=== PATIENT | male | born 1945 | race Caucasian/White ===

== ENCOUNTER 2016-07-14 17:06 | Emergency (ER) | payer MEDICARE, OTHER ==
[2016-07-14] MEDS ORDERED: NS 0.9% 1000 ML* 1,000 ML IV ONE (17:38)
[2016-07-14] MEDS ORDERED: Ondansetron INJ* 2 MG/ML VIAL IV ONE (17:38)
[2016-07-14] MEDS ORDERED: Morphine INJ* 2 MG/ML 1 ML SYRINGE IV ONE (17:38)
[2016-07-14 18:03] LABS: Hematocrit 43 % (42-52); Hemoglobin 14.5 g/dl (14.0-18.0); Mean Corpuscular HGB Conc 34 g/dl (31-36); Mean Corpuscular Hemoglobin 33 pg (27-31); Mean Corpuscular Volume 97 fL (80-94); Mean Platelet Volume 8 um3 (7.4-10.4); Red Blood Count 4.42 10^6/ul (4.0-5.4); Red Cell Distribution Width 12 % (10.5-15); White Blood Count 7.9 10^3/ul (3.5-10.8)
[2016-07-14 18:28] LABS: Albumin 4.1 g/dL (3.2-5.2); BUN/Creatinine Ratio 15.8 (8-20); C Reactive Protein 8.76 mg/L (< 5.00); Calcium 9.3 mg/dL (8.6-10.3); EGFR African American 76.5 (>60); EGFR Non-African American 59.5 (>60); Globulin 2.8 g/dL (2-4); Total Bilirubin 0.6 mg/dL (0.2-1.0); Total Protein 6.9 g/dL (6.4-8.9)
[2016-07-14] MEDS ORDERED: Midazolam* 1 MG/ML 10 ML VIAL (10 MG) ONE (18:32)
[2016-07-14] MEDS ORDERED: fentaNYL* 50 MCG/ML 5 ML VIAL (250 MCG VIAL) ONE (18:33)
[2016-07-14] MEDS ORDERED: Naloxone* 0.4 MG/ML 10 ML VIAL ONE (18:34)
[2016-07-14] MEDS ORDERED: Flumazenil* 0.1 MG/ML 5 ML MDV ONE (18:39)
[2016-07-14 18:46] VITALS: BP 130/75
--- NOTE | 2016-07-14 19:11 | RAD ---
Indication: LEFT hip pain. Dislocation of prosthetic hip while squatting today. Hip replacements completed in [place]. Comparison: None. Technique: AP pelvis. Report: The prosthetic LEFT hip is dislocated superior and posterior relative to the prosthetic acetabulum. No periprosthetic fracture evident. Negative for suggestion of loosening of the cemented acetabular or femoral components. The prosthetic RIGHT hip appears normally located. Soft tissue swelling about the LEFT hip. IMPRESSION: Posteriorly dislocated prosthetic LEFT hip.
--- NOTE | 2016-07-14 19:22 | RAD ---
Indication: Post reduction LEFT prosthetic hip dislocation. Comparison: Prereduction exam of the same date. Technique: AP pelvis REPORT AND IMPRESSION: The partially visualized prosthetic LEFT hip is now normally located in the AP projection concentric with the prosthetic acetabular cup and symmetric with the contralateral hip prosthesis. No fracture evident within the [id number]. Complete assessment would require an orthogonal view.
--- NOTE | 2016-07-14 19:49 | ED ---
Marcy Hussein Matthew, scribed for Elliot Oh on 07/14/16 at 1947 . Progress - Progress Note Progress Note: The patient is a sign out from Dr. Baker. The patient is alert and oriented after the reduction by Dr. Baker and will be discharged home. The patient is in stable condition. - Results/Orders Results/Orders: Repeat Pelvis XRay REPORT AND IMPRESSION: The partially visualized prosthetic LEFT hip is now normally located in the AP projection concentric with the prosthetic acetabular cup and symmetric with the contralateral hip prosthesis. No fracture evident within the field-of- view. Complete assessment would require an orthogonal view. Pelvis Xray IMPRESSION: Posteriorly dislocated prosthetic LEFT hip. Course/Dx - Diagnoses Provider Diagnoses: Hip dislocation, left The documentation as recorded by the Marcy orr Matthew accurately reflects the service I personally performed and the decisions made by Adriano ma Emmanuel.
--- NOTE | 2016-07-15 07:48 | ED ---
Ye Hussein Rebecca, scribed for Kilo Baker MD on 07/14/16 at 1730 . Lower Extremity - HPI Summary HPI Summary: Pt is a 70 y/o M BIBA who presents to ED c/o L hip pain s/p dislocation. Reports that dislocation occurred at 1630 while squatting down to shredder picker his dog and associated pain has been constant since onset. Pain is currently severe , ranked 9/10 and characterized as sharp. Sx aggravated and alleviated by nothing. Denies any other sx including fever. PSHx bilateral hip replacement ( 1994). Current episode similar to prior episode of dislocation in February 2016. - History of Current Complaint Chief Complaint: EDHipPelvisInjury Stated Complaint: LEFT HIP PAIN, Time Seen by Provider: 07/14/16 17:24 Hx Obtained From: Patient Onset of Pain: Hours - 1 hour ago, Prior to Arrival Onset/Duration: Still Present Severity Initially: Severe Severity Currently: Severe Pain Intensity: 9 Pain Scale Used: 0-10 Numeric Timing: Constant Location: Is Discrete @ - L hip Character Of Pain: Sharp Associated Signs And Symptoms: Positive: Negative. Negative: Fever Aggravating Factor(s): Nothing Alleviating Factor(s): Nothing - Allergies/Home Medications Allergies/Adverse Reactions: Allergies Allergy/AdvReac Type Severity Reaction Status Date / Time No Known Allergies Allergy Verified 07/14/16 17:23 PMH/Surg Hx/FS Hx/Imm Hx Previously Healthy: Yes Endocrine/Hematology History: Denies: Hx Diabetes Cardiovascular History: Denies: Hx Hypercholesterolemia, Hx Hypertension - Surgical History Surgery Procedure, Year, and Place: BILATERAL HIP REPLACEMENT - 1994. [facility] Infectious Disease History: No Infectious Disease History: Denies: Traveled Outside the [place] in Last 30 Days - Family History Known Family History: Negative: Cardiac Disease, Hypertension, Diabetes - Social History Alcohol Use: Occasionally Substance Use Type: Reports: None Smoking Status (MU): Light Every Day Tobacco Smoker Review of Systems Negative: Fever Positive: Arthralgia - L hip pain secondary to dislocation All Other Systems Reviewed And Are Negative: Yes Physical Exam - Summary Physical Exam Summary: EXTREMITIES: Left LE internally rotated and with hip decorate and decreased ROM secondary to pain. Triage Information Reviewed: Yes Vital Signs On Initial Exam: Initial Vitals Temp Pulse Resp BP Pulse Ox 97.3 F 71 20 134/76 98 07/14/16 17:12 03/11/17 17:12 07/14/16 17:12 07/14/16 17:12 07/14/16 17:12 Vital Signs Reviewed: Yes Appearance: Positive: Well-Appearing Skin: Positive: Warm, Skin Color Reflects Adequate Perfusion, Dry Head/Face: Positive: Normal Head/Face Inspection Eyes: Positive: EOMI, RUI ENT: Positive: Normal ENT inspection Respiratory/Lung Sounds: Positive: Clear to Auscultation, Breath Sounds Present Cardiovascular: Positive: RRR, Pulses are Symmetrical in both Upper and Lower Extremities Abdomen Description: Positive: Nontender, Soft Neurological: Positive: Normal, Sensory/Motor Intact, Alert, Oriented to Person Place, Time Psychiatric: Positive: Normal, Affect/Mood Appropriate - Laith Coma Scale Coma Scale Total: 15 Diagnostics - Vital Signs Vital Signs Temp Pulse Resp BP Pulse Ox 07/14/16 17:12 97.3 F 71 20 134/76 98 - Laboratory Lab Results: Lab Results 07/14/16 07/14/16 Range/Units 17:59 17:59 WBC 7.9 (3.5-10.8) 10^3/ul RBC 4.42 (4.0-5.4) 10^6/ul Hgb 14.5 (14.0-18.0) g/dl Hct 43 (42-52) % MCV 97 H (80-94) fL MCH 33 H (27-31) pg MCHC 34 (31-36) g/dl RDW 12 (10.5-15) % Plt Count 249 (150-450) 10^3/ul MPV 8 (7.4-10.4) um3 Neut % (Auto) 68.9 (38-83) % Lymph % (Auto) 20.7 L (25-47) % [place] % (Auto) 5.2 (1-9) % Eos % (Auto) 3.2 (0-6) % Baso % (Auto) 2.0 (0-2) % Absolute Neuts (auto) 5.4 (1.5-7.7) 10^3/ul Absolute Lymphs (auto) 1.6 (1.0-4.8) 10^3/ul Absolute Monos (auto) 0.4 (0-0.8) 10^3/ul Absolute Eos (auto) 0.3 (0-0.6) 10^3/ul Absolute Basos (auto) 0.2 (0-0.2) 10^3/ul Absolute Nucleated RBC 0 10^3/ul Nucleated RBC % 0 Sodium 139 (133-145) mmol/L Potassium 4.0 (3.5-5.0) mmol/L Chloride 104 (101-111) mmol/L Carbon Dioxide 29 (22-32) mmol/L Anion Gap 6 (2-11) mmol/L BUN 19 (6-24) mg/dL Creatinine 1.20 H (0.67-1.17) mg/dL Est GFR ( Amer) 76.5 (>60) Est GFR (Non-Af Amer) 59.5 (>60) BUN/Creatinine Ratio 15.8 (8-20) Glucose 111 H (70-100) mg/dL Calcium 9.3 (8.6-10.3) mg/dL Total Bilirubin 0.60 (0.2-1.0) mg/dL AST 18 (13-39) U/L ALT 12 (7-52) U/L Alkaline Phosphatase 79 (34-104) U/L C-Reactive Protein 8.76 H (< 5.00) mg/L Total Protein 6.9 (6.4-8.9) g/dL Albumin 4.1 (3.2-5.2) g/dL Globulin 2.8 (2-4) g/dL Albumin/Globulin Ratio 1.5 (1-3) Result Diagrams: 07/14/16 17:59 07/14/16 17:59 Lab Statement: Any lab studies that have been ordered have been reviewed, and results considered in the medical decision making process. - Radiology hip and pelvis x ray Radiology Interpretation Completed By: Radiologist - IMPRESSION: Posteriorly dislocated prosthetic LEFT hip. Post reduction hip xray Radiology Interpretation Completed By: Radiologist - REPORT AND IMPRESSION: The partially visualized prosthetic LEFT hip is now normally located in the AP projection concentric with the prosthetic acetabular cup and symmetric with the contralateral hip prosthesis. No fracture evident within the [id number]. Complete assessment would require an orthogonal view. Re-Evaluation - Re-Evaluation First Eval Re-Evaluation Time: 18:32 Change: Improved Comment: Pt is sitting comfortably, is feeling little pain when not moving. Lower Extremity Course/Dx - Course Course Of Treatment: PROCEDURE NOTE: Procedural Sedation. Indications: Left hip reduction. [place] Protocol: a timeout was performed and the correct patient and site were verified. Consent: The risks and benefits of monitored anesthesia care, including the risk of aspiration, deep sedation requiring airway management including possible intubation, nausea and vomiting and the risks of not performing the procedure, including severe pain and inability to complete the procedure, were all discussed with the patient. The alternatives of performing the procedure, including local anesthesia and IV analgesia, also discussed. The patient has a ride home available. ASA Class: II-mild systemic disease. Pre-anesthesia evaluation, including history, exam, and informed consent is documented in the ED note above. Monitoring: Continuous monitoring of heart rate, respiratory rate, pulse oximetry and ETCO2. Supplemental oxygen prior to and during procedure via nasal cannula. Resuscitation equipment available at the bedside during sedation. The patient received Versed and Fentanyl and dosages were recorded on the sedation form. The patient was recovered from the sedation without complication or incident. Patient returned to pre-sedation level of awareness. The monitoring was discontinued at this time. Post-anesthesia evaluation: Respiratory function, cardiovascular function, temperature, and mental status did return to pre-anesthetic state. Pain is controlled. Hip x ray IMPRESSION: Posteriorly dislocated prosthetic LEFT hip. Post reduction hip x ray IMPRESSION: The partially visualized prosthetic LEFT hip is now normally. located in the AP projection concentric with the prosthetic acetabular cup and symmetric. with the contralateral hip prosthesis. No fracture evident within the [id number]. Complete assessment would require an orthogonal view. Assessment/Plan: Pt is a 70 y/o M BIBA who presents to ED c/o L hip pain s/p dislocation. Reports that dislocation occurred at 1630 while squatting down to shredder picker his dog and associated pain has been constant since onset. Pain is currently severe, ranked 9/10 and characterized as sharp. Sx aggravated and alleviated by nothing. Denies any other sx including fever. PSHx bilateral hip replacement (1994). Current episode similar to prior episode of dislocation in February 2016. Hip xay IMPRESSION: Posteriorly dislocated prosthetic LEFT hip. At this point I discussed the findings with the patient and in order for me to reduce the dislocation I need to perform conscious sedation. Patient understands benefits and risk of procedure and he consented. See procedure note. Post reduction hip x ray IMPRESSION: The partially visualized prosthetic LEFT hip is now normally located in the AP projection concentric with the prosthetic acetabular cup and symmetric with the contralateral hip prosthesis. No fracture evident within the [id number]. Complete assessment would require an orthogonal view. Patient reports feeling much better and dutta has resolved. He is hemodynamically stable and A+Ox3 however he still somnolent. He will be signed out to Dr. Oh. He will be observed for 1 hour post conscious sedation and then he can be discharged hope with F/U of PMD. Patients pulses are strong and present. He is neurovascularly intact. - Diagnoses Differential Diagnosis/HQI/PQRI: Positive: Bursitis, Contusion, Dislocation, Fracture (Closed), Sprain, Strain Provider Diagnoses: Hip dislocation, left Discharge - Discharge Plan Condition: Stable Disposition: HOME Patient Education Materials: Hip Dislocation (ED) Referrals: Siva Snell MD [Medical Doctor] - 2 Days Additional Instructions: Please follow-up with Dr. Snell in 2 days. The documentation as recorded by the Ye orr Rebecca accurately reflects the service I personally performed and the decisions made by , Kilo Baker MD.
== END 2016-07-14 20:31 | disposition home or self-care (01) ==
LOC: ED 17:06
DX: S73.005A Unspecified dislocation of left hip, initial encounter (principal); Z72.0 Tobacco use; X50.9XXA Other and unspecified overexertion or strenuous movements or postures, initial encounter; Y93.K9 Activity, other involving animal care; Y92.9 Unspecified place or not applicable
CPT/HCPCS: 36415; 72170; 80053; 85025; 86140; 96360; 96374; 96375; 99283; J2250; J2270; J2310; J2405; J3010